=== PATIENT | female | born 1985 | race Caucasian/White ===

== ENCOUNTER 2016-12-29 17:56 | Emergency (ER) | payer OTHER ==
[2016-12-29 17:56] VITALS: BMI 23.3
[2016-12-29 18:04] VITALS: BP 109/75; PULSE 76; TEMP 97.8; O2SAT 100
--- NOTE | 2016-12-29 19:17 | C.PDOC ---
History Of Present Illness 31 yr old female presents to ER with complaints of cough for the past 3 weeks, associated with chest congestion. Patient states she feels pain when she coughs. Patient reports she was seen for chest pain and had a normal EKG and was discharged. Patient states she came in today due to the persistent cough. Patient denies fever, SOB, nausea, vomiting, abdominal pain, diarrhea, headache , weakness or numbness. Time Seen by Provider: 12/29/16 18:10 Chief Complaint (Nursing): Cough, Cold, Congestion History Per: Patient History/Exam Limitations: no limitations Onset/Duration Of Symptoms: Persistent (3 weeks) Current Symptoms Are (Timing): Still Present Sick Contacts (Context): None Recent travel outside of the [place]: No Past Medical History Reviewed: Historical Data, Nursing Documentation, Vital Signs Vital Signs: Last Vital Signs Temp 97.8 F 12/29/16 18:00 Pulse 76 12/29/16 18:00 Resp 20 12/29/16 19:44 BP 109/75 12/29/16 18:00 Pulse Ox 100 12/29/16 21:09 - Medical History PMH: Asthma Surgical History: Tonsillectomy - [facility] Procedures COLONOSCOPY (11/07/14) ESOPHAGOGASTRODUODENOSCOPY [EGD] W/CLOSED BIOPSY (11/21/14) Family History: States: No Known Family Hx - Social History Hx Tobacco Use: No Hx Alcohol Use: Yes Hx Substance Use: No - Immunization History Hx Tetanus Toxoid Vaccination: No Hx Influenza Vaccination: No Hx Pneumococcal Vaccination: No Review Of Systems Except As Marked, All Systems Reviewed And Found Negative. Constitutional: Negative for: Fever Cardiovascular: Positive for: Chest Pain (when coughing ) Respiratory: Positive for: Cough. Negative for: Shortness of Breath Gastrointestinal: Negative for: Nausea, Vomiting, Abdominal Pain, Diarrhea Neurological: Negative for: Weakness, Numbness, Headache Physical Exam - Physical Exam Appears: Non-toxic, No Acute Distress Skin: Warm, Dry, No Rash Head: Atraumatic, Normacephalic Ear(s): Bilateral: Normal Oral Mucosa: Moist Throat: Normal, No Erythema, No Exudate Chest: Symmetrical, No Tenderness Cardiovascular: Rhythm Regular, No Murmur Respiratory: Rhonchi (scattered ), No Wheezing Gastrointestinal/Abdominal: Normal Exam, Soft, No Tenderness, No Guarding, No Rebound Back: Normal Inspection, No CVA Tenderness Extremity: Normal ROM, No Swelling Neurological/Psych: Oriented x3, Normal Speech, Normal Motor ED Course And Treatment O2 Sat by Pulse Oximetry: 100 (on RA) Pulse Ox Interpretation: Normal - Radiology CXR: Interpreted by Me, Viewed By Me CXR Interpretation: Yes: Infiltrates (interstitial infiltrate) Medical Decision Making Medical Decision Making: PLAN: * CXR * Tessalon PO * Zithromax PO * Prednisone PO On re-exam, the patient reports improvement of symptoms. Lungs are CTA, heart is RRR, abdomen is soft, non-tender and tolerating PO well. Follow up with the medical doctor within 1-2 days. Return if worsened. Disposition - Disposition Referrals: Nina Comer MD [Staff Provider] - Disposition: HOME/ ROUTINE Disposition Time: 19:15 Condition: GOOD Additional Instructions: Follow up with the medical doctor within 1-2 days. Return if worsened. Prescriptions: Benzonatate [Tessalon Perles] 200 mg PO TID PRN #21 sgl PRN Reason: Cough Azithromycin [Zithromax] 250 mg PO DAILY #4 tab predniSONE [Prednisone] 20 mg PO BID #10 tab Instructions: Acute Bronchitis (ED) - Clinical Impression Clinical Impression: Bronchitis, Atypical pneumonia - PA / MICE RAISER / Resident Statement MD/DO has reviewed & agrees with the documentation as recorded. - Scribe Statement The provider has reviewed the documentation as recorded by the Scribe Christina River All medical record entries made by the Scribe were at my direction and personally dictated by me. I have reviewed the chart and agree that the record accurately reflects my personal performance of the history, physical exam, medical decision making, and the department course for this patient. I have also personally directed, reviewed, and agree with the discharge instructions and disposition.
[2016-12-29 19:45] VITALS: RESP 20
--- NOTE | 2016-12-30 08:30 | RAD ---
HISTORY: cough x 3 weeks, COMPARISON: Chest x-ray portion of obstruction series performed 12/01/14 TECHNIQUE: Chest PA and lateral FINDINGS: LUNGS: Minimal atelectasis at the left lung base with tenting of the hemidiaphragm. No focal consolidation. Please note that chest x-ray has limited sensitivity for the detection of pulmonary masses. PLEURA: No significant pleural effusion identified. No definite pneumothorax . CARDIOVASCULAR: The cardiomediastinal silhouette appears within normal limits of size. OSSEOUS STRUCTURES: No acute osseous abnormality identified. VISUALIZED UPPER ABDOMEN: Unremarkable. OTHER FINDINGS: None. IMPRESSION: Re-identified minimal atelectasis at the left lung base with tenting of the hemidiaphragm.
== END 2016-12-29 19:44 | disposition home or self-care (01) ==
LOC: C.ER 17:56
DX: J40 Bronchitis, not specified as acute or chronic (principal); J18.9 Pneumonia, unspecified organism

== ENCOUNTER 2016-12-30 23:32 | Emergency (ER) | payer OTHER ==
[2016-12-30 23:32] VITALS: BMI 23.3
[2016-12-31 00:15] VITALS: BP 103/63; PULSE 63; TEMP 98.2; O2SAT 99
--- NOTE | 2016-12-31 00:41 | C.PDOC ---
History Of Present Illness 31 yo female come in to ED for medication evaluation. Pt admits, was seen here yesterday and diagnosed with bronchitis, received Rx: Zithromax, Tessalon and prednisone. Pt admits, "today noted some yellow discoloration of my eyes and not sure this is an allergic reaction to medication that I was given". Otherwise , pt denies fever, chills, rash, headache, dizziness, drooling, dysphagia, dyspnea, wheezing, SOB, abd. pain, V/D or any other active complaints. Ambulate to ED for evaluation, not in any apparent distress. Last dose of medication was Time Seen by Provider: 12/31/16 00:05 Chief Complaint (Nursing): Allergic Reaction History Per: Patient Past Medical History Reviewed: Historical Data, Nursing Documentation, Vital Signs Vital Signs: Last Vital Signs Temp 98.2 F 12/31/16 00:09 Pulse 63 12/31/16 00:09 Resp 16 12/31/16 00:09 BP 103/63 12/31/16 00:09 Pulse Ox 99 12/31/16 00:43 - Medical History PMH: Asthma Denies: Chronic Kidney Disease Surgical History: Tonsillectomy - [facility] Procedures COLONOSCOPY (11/07/14) ESOPHAGOGASTRODUODENOSCOPY [EGD] W/CLOSED BIOPSY (11/21/14) Family History: States: No Known Family Hx - Social History Hx Tobacco Use: No Hx Alcohol Use: Yes Hx Substance Use: No - Immunization History Hx Tetanus Toxoid Vaccination: No Hx Influenza Vaccination: No Hx Pneumococcal Vaccination: No Review Of Systems Except As Marked, All Systems Reviewed And Found Negative. Constitutional: Negative for: Fever, Chills Eyes: Negative for: Pain, Vision Change, Conjunctivae Inflammation, Eyelid Inflammation, Redness ENT: Negative for: Mouth Swelling, Throat Pain, Throat Swelling Cardiovascular: Negative for: Chest Pain, Palpitations, Edema, Light Headedness Respiratory: Negative for: Cough, Shortness of Breath Gastrointestinal: Negative for: Nausea, Vomiting, Abdominal Pain Musculoskeletal: Negative for: Neck Pain, Back Pain Neurological: Negative for: Weakness, Numbness, Altered Mental Status, Headache , Dizziness Physical Exam - Physical Exam Appears: Well, Non-toxic, No Acute Distress Skin: Normal Color, Warm, Dry, No Rash Head: Atraumatic, Normacephalic Eye(s): bilateral: PERRL, EOMI, Other (mild conjunctival injection, watery eyes B/L. No scleral icterus, no periorbital edema or erethrma, no discharge.) Ear(s): Bilateral: Normal Nose: Discharge (B/L nasal congestion.) Oral Mucosa: Moist, No Drooling, No Trismus Tongue: Normal Appearing, No Swelling Lips: Normal Appearing, No Swelling Throat: Normal, No Erythema, No Exudate, No Drooling, Other (Uvula midline, no edema.) Neck: Normal, Normal ROM, Supple Cardiovascular: Rhythm Regular Respiratory: Normal Breath Sounds, No Stridor, No Wheezing Gastrointestinal/Abdominal: Normal Exam, Soft, No Tenderness Back: Normal Inspection, No CVA Tenderness Extremity: Normal ROM, No Pedal Edema, No Deformity Neurological/Psych: Oriented x3, Normal Speech ED Course And Treatment O2 Sat by Pulse Oximetry: 99 Pulse Ox Interpretation: Normal Progress Note: On re-evaluation, pt is afebrile, hemnodynamicaly stable. Non- toxic. PusleOx 99% RA. Eyes: normal exam. No acute findings. ENT: No acute findings. Uvula midline, no edema. NO drooling. Neck: supple. Lungs: CTA B/L, BS equal B/L. ABd: benign. SKin: no rash. Neurologicaly intact. Pt has clinical findings c/w URI sx, no evidencce of allergic reaction. Pt advised. ref. to F/u with PMD In 2-3 days for re-eval. return to ED if any worsening or new changes. Disposition Counseled Patient/Family Regarding: Diagnosis, Need For Followup, Rx Given - Disposition Referrals: [facility] [Outside] Disposition: HOME/ ROUTINE Disposition Time: 00:23 Condition: STABLE Additional Instructions: Continue medication as prescribed Bedrest Encourage fluids Follow up with PMD In 2-3 days for re-evaluation. Return to ED if any worsening or new changes. Instructions: Upper Respiratory Infection (ED) - Clinical Impression Clinical Impression: Upper respiratory infection
[2016-12-31 00:53] VITALS: RESP 20
== END 2016-12-31 00:52 | disposition home or self-care (01) ==
LOC: C.ER 23:32
DX: J06.9 Acute upper respiratory infection, unspecified (principal)

== ENCOUNTER 2017-01-10 18:00 | Emergency (ER) | payer OTHER ==
[2017-01-10 18:00] VITALS: BMI 23.3
[2017-01-10 18:15] VITALS: O2SAT 100
--- NOTE | 2017-01-10 19:45 | C.PDOC ---
History Of Present Illness A 31 year old female presents to the emergency room with complaints of coughing for a few months. Patient reports that she has been seen by her PMD and was told that she has bronchitis. Patient was given Zithromax and feels better. Patient wants to know if her bronchitis has resolved. Patient does not want an X -ray since she had one 2 weeks ago. Patient denies any chest pain, shortness of breath, fever, chills, nausea, vomiting, diarrhea, or any other complaints. Time Seen by Provider: 01/10/17 19:01 Chief Complaint (Nursing): Shortness Of Breath History Per: Patient History/Exam Limitations: no limitations Onset/Duration Of Symptoms: Other (Months) Current Symptoms Are (Timing): Still Present Current Respiratory Medications: Other (Zithromax) Severity: Mild Associated Symptoms: denies: Fever, Chills, Chest Pain Recent travel outside of the [place]: No Past Medical History Reviewed: Historical Data, Nursing Documentation, Vital Signs Vital Signs: Last Vital Signs Temp 98 F 01/10/17 19:43 Pulse 63 01/10/17 19:43 Resp 18 01/10/17 19:43 BP 105/63 01/10/17 19:43 Pulse Ox 100 01/10/17 20:13 - Medical History PMH: Asthma Denies: Chronic Kidney Disease Surgical History: Tonsillectomy - [facility] Procedures COLONOSCOPY (11/07/14) ESOPHAGOGASTRODUODENOSCOPY [EGD] W/CLOSED BIOPSY (11/21/14) Family History: States: Unknown Family Hx - Social History Hx Tobacco Use: No Hx Alcohol Use: Yes Hx Substance Use: No - Immunization History Hx Tetanus Toxoid Vaccination: No Hx Influenza Vaccination: No Hx Pneumococcal Vaccination: No Review Of Systems Except As Marked, All Systems Reviewed And Found Negative. Constitutional: Negative for: Fever, Chills Cardiovascular: Negative for: Chest Pain Respiratory: Positive for: Cough. Negative for: Shortness of Breath Gastrointestinal: Negative for: Nausea, Vomiting, Diarrhea Physical Exam - Physical Exam Appears: Well, Non-toxic, No Acute Distress Skin: Normal Color, Warm, Dry Head: Atraumatic, Normacephalic Eye(s): bilateral: Normal Inspection Ear(s): Bilateral: Normal Nose: Normal, No Discharge Oral Mucosa: Moist Throat: Normal, No Erythema, No Exudate Neck: Normal ROM, Supple Cardiovascular: Rhythm Regular Respiratory: Normal Breath Sounds, No Rales, No Rhonchi, No Wheezing Gastrointestinal/Abdominal: Soft, No Tenderness, No Guarding, No Rebound Extremity: Normal ROM, No Tenderness Neurological/Psych: Oriented x3, Normal Speech ED Course And Treatment O2 Sat by Pulse Oximetry: 100 Progress Note: Informed patient that if she is feeling much better after taking Zithromax, that Bronchitis has more than likely resolved. Patient is afebrile and denies any coughing, shortness of breath, or chest pain. Instructed patient to continue taking medication and to follow up with PMD within 1-2 days. Disposition - Disposition Disposition: HOME/ ROUTINE Disposition Time: 19:43 Condition: STABLE Additional Instructions: Follow up with your PMD within 1-2 days. Return to Ed if feel worse. Instructions: Acute Cough (ED) - Clinical Impression Clinical Impression: Cough - Scribe Statement The provider has reviewed the documentation as recorded by the Katie James Provider Scribe Attestation: All medical record entries made by the Katie were at my direction and personally dictated by me. I have reviewed the chart and agree that the record accurately reflects my personal performance of the history, physical exam, medical decision making, and the department course for this patient. I have also personally directed, reviewed, and agree with the discharge instructions and disposition.
[2017-01-10 19:46] VITALS: BP 105/63; PULSE 63; RESP 18; TEMP 98
== END 2017-01-10 19:47 | disposition home or self-care (01) ==
LOC: C.ER 18:00
DX: R05 Cough (principal)

== ENCOUNTER 2017-04-26 18:16 | Emergency (ER) | payer OTHER ==
[2017-04-26 18:16] VITALS: BMI 23.3
[2017-04-26 18:27] VITALS: BP 113/71; PULSE 72; RESP 20; TEMP 98.9; O2SAT 100
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
--- NOTE | 2017-04-27 09:00 | RAD ---
PROCEDURE: Left Index finger radiographs. HISTORY: injury COMPARISON: None. TECHNIQUE: AP radiograph of the left hand, as well as spot oblique and lateral images of index finger were obtained. FINDINGS: LEFT INDEX FINGER: Normal left index finger, without fracture or focal lesion. Remainder of the left hand (as seen on the AP view) grossly intact. JOINTS: Normal. SOFT TISSUES: Normal. OTHER FINDINGS: None. IMPRESSION: Normal left index finger radiographs.
== END 2017-04-26 19:58 | disposition home or self-care (01) ==
LOC: C.ER 18:16
DX: S63.611A Unspecified sprain of left index finger, initial encounter (principal); Y08.89XA Assault by other specified means, initial encounter

== ENCOUNTER 2017-05-04 18:33 | Emergency (ER) | payer OTHER ==
[2017-05-04 18:33] VITALS: BMI 23.3
[2017-05-04 18:56] VITALS: BP 118/80; PULSE 63; RESP 20; TEMP 98.5; O2SAT 99
--- NOTE | 2017-05-04 19:26 | C.PDOC ---
History Of Present Illness 32 y/o female presents to ED with complaints of pain to the 2nd left finger for 1+ week. Patient states she was seen at last week in [facility], had XR done and was diagnosed as a sprain. Pain persists and notes finger moves "sideways". Patient states pain has not improved and notes finger looks pale. Patient denies numbness, tingling or any other complaints at this time. (-) new trauma Time Seen by Provider: 05/04/17 19:01 Chief Complaint (Nursing): Finger,Hand,&Wrist History Per: Patient History/Exam Limitations: no limitations Onset/Duration Of Symptoms: Days Current Symptoms Are (Timing): Still Present Quality: "Pain" Past Medical History Reviewed: Historical Data, Nursing Documentation, Vital Signs Vital Signs: Last Vital Signs Temp 98.5 F 05/04/17 18:52 Pulse 63 05/04/17 18:52 Resp 20 05/04/17 18:52 BP 118/80 05/04/17 18:52 Pulse Ox 99 05/04/17 19:43 - Medical History PMH: Asthma Surgical History: Tonsillectomy - [facility] Procedures COLONOSCOPY (11/07/14) ESOPHAGOGASTRODUODENOSCOPY [EGD] W/CLOSED BIOPSY (11/21/14) Family History: States: Unknown Family Hx - Social History Hx Tobacco Use: No Hx Alcohol Use: Yes Hx Substance Use: No - Immunization History Hx Tetanus Toxoid Vaccination: No Hx Influenza Vaccination: No Hx Pneumococcal Vaccination: No Review Of Systems Except As Marked, All Systems Reviewed And Found Negative. Constitutional: Negative for: Fever, Chills Gastrointestinal: Negative for: Nausea, Vomiting, Diarrhea Musculoskeletal: Positive for: Hand Pain Skin: Negative for: Rash Neurological: Negative for: Weakness, Numbness Physical Exam - Physical Exam Appears: Non-toxic, No Acute Distress Skin: Normal Color, Warm Head: Atraumatic, Normacephalic Eye(s): bilateral: Normal Inspection, EOMI Nose: Normal Oral Mucosa: Moist Chest: Symmetrical Respiratory: No Accessory Muscle Use Extremity: Normal ROM, Tenderness (To the left 2nd dip), Capillary Refill (<2 seconds), No Deformity Extremity: Bilateral: Normal Color And Temperature (no change in temp to affected finger) Pulses: Left Radial: Normal, Right Radial: Normal Neurological/Psych: Oriented x3, Normal Speech, Normal Motor, Normal Sensation ED Course And Treatment O2 Sat by Pulse Oximetry: 99 (RA) Progress Note: Finger FROM, cap refill < 2 sec, strong radial pulse, no change in strength. Pt notes she has a specialist appt on 05/16. Patient will be discharged home and advised to follow up with Hand Specialist in 1-2 days. Case discsused with Dr Sprague , agreed upon plan and discharge. Reevaluation Time: 07:15 Reassessment Condition: Improved Medical Decision Making Medical Decision Making: Plan: XRAY Disposition - Disposition Disposition: HOME/ ROUTINE Disposition Time: 19:25 Condition: STABLE Additional Instructions: Rest, ice and elevate the area. Follow up with hand specialist in 1-2 days. Return to ER if symptoms persist or worsen. Instructions: Finger Sprain (ED) - Clinical Impression Clinical Impression: Finger sprain - Scribe Statement The provider has reviewed the documentation as recorded by the Jaymieibbrett Sanchez All medical record entries made by the Jaymieibbrett were at my direction and personally dictated by me. I have reviewed the chart and agree that the record accurately reflects my personal performance of the history, physical exam, medical decision making, and the department course for this patient. I have also personally directed, reviewed, and agree with the discharge instructions and disposition.
== END 2017-05-04 20:15 | disposition home or self-care (01) ==
LOC: C.ER 18:33
DX: S63.611D Unspecified sprain of left index finger, subsequent encounter (principal); X58.XXXD Exposure to other specified factors, subsequent encounter

== ENCOUNTER 2017-05-16 12:07 | Emergency (ER) | payer OTHER ==
[2017-05-16 12:07] VITALS: BMI 23.3
[2017-05-16 12:13] VITALS: BP 111/67; PULSE 66; RESP 18; TEMP 97.8; O2SAT 98
--- NOTE | 2017-05-16 13:01 | C.PDOC ---
History Of Present Illness Pt states that she used a "facial scrub" last night with mild skin irritation. She used it again this morning and irritation got worse. Time Seen by Provider: 05/16/17 12:39 Chief Complaint (Nursing): Allergic Reaction History Per: Patient Onset/Duration Of Symptoms: Hrs (since last night) Current Symptoms Are (Timing): Still Present Possible Cause: Other ("Facial scrub") Associated Symptoms: Skin Rash, Itching Home/EMS Treatment: None Severity: Moderate Additional History Per: Prior Records Past Medical History Reviewed: Historical Data, Nursing Documentation, Vital Signs Vital Signs: Last Vital Signs Temp 97.8 F 05/16/17 12:12 Pulse 66 05/16/17 12:12 Resp 18 05/16/17 12:12 BP 111/67 05/16/17 12:12 Pulse Ox 98 05/16/17 12:12 - Medical History PMH: Asthma Surgical History: Tonsillectomy - [facility] Procedures COLONOSCOPY (11/07/14) ESOPHAGOGASTRODUODENOSCOPY [EGD] W/CLOSED BIOPSY (11/21/14) Family History: States: Unknown Family Hx - Social History Hx Tobacco Use: No Hx Alcohol Use: Yes Hx Substance Use: No - Immunization History Hx Tetanus Toxoid Vaccination: No Hx Influenza Vaccination: No Hx Pneumococcal Vaccination: No Review Of Systems Except As Marked, All Systems Reviewed And Found Negative. Constitutional: Negative for: Fever, Weakness ENT: Negative for: Mouth Pain, Mouth Swelling, Throat Pain, Throat Swelling Cardiovascular: Negative for: Chest Pain Respiratory: Negative for: Shortness of Breath Gastrointestinal: Negative for: Vomiting, Abdominal Pain Skin: Positive for: Rash (on face) Neurological: Negative for: Weakness, Numbness, Seizures, Altered Mental Status Physical Exam - Physical Exam Appears: Non-toxic, No Acute Distress Skin: Warm, Dry, Rash (Facial skin irritation) Head: Atraumatic, Normacephalic Eye(s): bilateral: Normal Inspection, PERRL, EOMI Oral Mucosa: Moist Lips: Normal Appearing Throat: Normal Neck: Normal ROM, Supple Cardiovascular: Rhythm Regular Respiratory: Normal Breath Sounds, No Accessory Muscle Use Gastrointestinal/Abdominal: Soft, No Tenderness Extremity: Normal ROM Neurological/Psych: Oriented x3, Normal Speech, Normal Motor, Normal Sensation ED Course And Treatment O2 Sat by Pulse Oximetry: 98 Pulse Ox Interpretation: Normal Disposition Counseled Patient/Family Regarding: Diagnosis, Need For Followup - Disposition Disposition: HOME/ ROUTINE Disposition Time: 13:03 Condition: STABLE Additional Instructions: Follow up with your doctor. Return to the ER if you develop throat swelling, shortness of breath, worsening of symptoms or if you have any other concerns. Prescriptions: DiphenhydrAMINE [Benadryl] 25 mg PO Q4 PRN #30 cap PRN Reason: Allergy Symptoms Instructions: General Allergic Reaction (ED) Forms: [facility] (Lao) - Clinical Impression Clinical Impression: Facial rash, Adverse reaction to drug that acts primarily on skin
== END 2017-05-16 13:11 | disposition home or self-care (01) ==
LOC: C.ER 12:07
DX: L25.1 Unspecified contact dermatitis due to drugs in contact with skin (principal); T50.995A Adverse effect of other drugs, medicaments and biological substances, initial encounter; Y92.89 Other specified places as the place of occurrence of the external cause

== ENCOUNTER 2017-11-24 17:56 | Emergency (ER) | payer BC, OTHER ==
[2017-11-24 18:25] VITALS: BMI 22.6
[2017-11-24 18:35] VITALS: BP 110/77; PULSE 75; RESP 18; TEMP 97.9; O2SAT 99
--- NOTE | 2017-11-24 19:41 | C.PDOC ---
History Of Present Illness Patient is a 32 y/o female who presents to the ED with a complaint of needing to take deep breaths over the last 2 weeks. Patient has a questionable Hx of reactive airway disease and has multiple ER presentations with extensive workups without significant findings. 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 Patient requests to refill MDI. No other physical complaints at this time. Time Seen by Provider: 11/24/17 19:32 Chief Complaint (Nursing): Shortness Of Breath History Per: Patient History/Exam Limitations: no limitations Onset/Duration Of Symptoms: Days (last 2 weeks) Current Symptoms Are (Timing): Still Present Severity: Moderate Pain Scale Rating Of: 4 Recent travel outside of the [place]: No Past Medical History Reviewed: Historical Data, Nursing Documentation, Vital Signs Vital Signs: Last Vital Signs Temp 97.9 F 11/24/17 18:26 Pulse 75 11/24/17 18:26 Resp 18 11/24/17 18:26 BP 110/77 11/24/17 18:26 Pulse Ox 99 11/24/17 19:41 - Medical History PMH: Asthma Denies: Chronic Kidney Disease Other PMH: questionable Hx of reactive airway disease Surgical History: Tonsillectomy - [facility] Procedures COLONOSCOPY (11/07/14) ESOPHAGOGASTRODUODENOSCOPY [EGD] W/CLOSED BIOPSY (11/21/14) Family History: States: Unknown Family Hx - Social History Hx Tobacco Use: No Hx Alcohol Use: No Hx Substance Use: No - Immunization History Hx Tetanus Toxoid Vaccination: Yes Hx Influenza Vaccination: Yes Hx Pneumococcal Vaccination: Yes Review Of Systems Respiratory: Positive for: Other (needing to take deep breaths) Physical Exam - Physical Exam Appears: Well, Non-toxic, No Acute Distress, Other (smiling, anxious) Skin: Normal Color, Warm, Dry Head: Atraumatic, Normacephalic Oral Mucosa: Moist Chest: Symmetrical Cardiovascular: Rhythm Regular, No Murmur Respiratory: Normal Breath Sounds, No Decreased Breath Sounds, No Accessory Muscle Use, No Rales, No Rhonchi, No Wheezing Neurological/Psych: Oriented x3, Normal Speech, Normal Cognition ED Course And Treatment O2 Sat by Pulse Oximetry: 99 Medical Decision Making Medical Decision Making: vague symptoms for last 2 weeks, recovering from viral syndrome, anxious, many prior ED evals without significant findings. wants Albuterol inhaler refill no w/u indicated at this time. Disposition Doctor Will See Patient In The: Office Counseled Patient/Family Regarding: Studies Performed, Diagnosis - Disposition Referrals: [place] [facility] [place] [Outside] [facility] [Outside] [facility] [Outside] Violet Barry MD [Staff Provider] - Disposition: HOME/ ROUTINE Disposition Time: 19:40 Condition: GOOD Additional Instructions: albuterol puffer as needed Follow-up with Dr. Barry for your new PMD as needed Follow-up with outpatient Psych and rn social services to consider evaluation of anxiety- medications and counseling available. Prescriptions: Albuterol HFA [Ventolin HFA 90 mcg/actuation (8 g)] 2 puff IH Q4H PRN #1 unit PRN Reason: asthma Instructions: Viral Syndrome (ED), Anxiety (ED) Forms: [employer] (Hebrew) - Clinical Impression Clinical Impression: Anxiety, Shortness of breath - Scribe Statement The provider has reviewed the documentation as recorded by the Scribe Tisha Amador All medical record entries made by the Scribe were at my direction and personally dictated by me. I have reviewed the chart and agree that the record accurately reflects my personal performance of the history, physical exam, medical decision making, and the department course for this patient. I have also personally directed, reviewed, and agree with the discharge instructions and disposition.
== END 2017-11-24 19:55 | disposition home or self-care (01) ==
LOC: C.ER 17:56
DX: F41.9 Anxiety disorder, unspecified (principal); R06.02 Shortness of breath

== ENCOUNTER 2018-04-07 22:35 | Emergency (ER) | payer BC ==
[2018-04-07 22:35] VITALS: BMI 22.6
[2018-04-07 22:48] VITALS: O2SAT 100
[2018-04-07 23:49] LABS: HCG,QUALITATIVE URINE NEGATIVE (NEGATIVE); SQUAMOUS EPITHIAL < 1 /hpf (0-5); URINE BILIRUBIN NEGATIVE (NEGATIVE); URINE BLOOD NEGATIVE (NEGATIVE); URINE CLARITY Clear (Clear); URINE COLOR Yellow (YELLOW); URINE GLUCOSE (UA) NORMAL (Normal); URINE LEUKOCYTE ESTERASE NEG Leu/uL (Negative); URINE PROTEIN NEGATIVE (NEGATIVE); URINE UROBILINOGEN NORMAL mg/dL (0.2-1.0)
[2018-04-07] MEDS ORDERED: Sodium Chloride 0.9% 1,000 ML IV STA (23:51)
--- NOTE | 2018-04-07 23:55 | C.PDOC ---
History Of Present Illness 33 y/o F c PMHx anxiety, IBS p/w lightheadedness, nausea, loose stools with mucus, "never feeling hungry," generally feeling unwell. Patient states symptoms began while she was in [place] and just worsened upon her arrival home. She saw her PMD for the lightheadedness which she does not describe as a spinning sensation and was prescribed Scopolamine patches which she has not taken. She then developed her abdominal discomfort and came to the ED for further evaluation. Denies fever, stiff neck, vomiting, dysuria, rash. Time Seen by Provider: 04/07/18 23:18 Chief Complaint (Nursing): Dizziness/Lightheaded Past Medical History Vital Signs: Last Vital Signs Temp 98.2 F 04/07/18 22:41 Pulse 75 04/07/18 22:41 Resp 16 04/07/18 22:41 BP 115/78 04/07/18 22:41 Pulse Ox 100 04/07/18 23:56 - Medical History PMH: Asthma Denies: Chronic Kidney Disease Surgical History: Tonsillectomy - [facility] Procedures COLONOSCOPY (11/07/14) ESOPHAGOGASTRODUODENOSCOPY [EGD] W/CLOSED BIOPSY (11/21/14) Family History: States: Unknown Family Hx - Social History Hx Tobacco Use: No Hx Alcohol Use: No Hx Substance Use: No - Immunization History Hx Tetanus Toxoid Vaccination: Yes Hx Influenza Vaccination: Yes Hx Pneumococcal Vaccination: Yes Review Of Systems Except As Marked, All Systems Reviewed And Found Negative. Constitutional: Negative for: Fever Cardiovascular: Negative for: Chest Pain Physical Exam - Physical Exam Additional Physical Exam Comments: Constitutional: No acute distress. Head: Normocephalic. Atraumatic. Eyes: PERRL. ENT: Moist mucous membranes. Neck: Supple. No rigidity. Cardiovascular: Regular rate. Radial pulse 2+ bilaterally. Chest: No tenderness. Respiratory: Clear to auscultation bilaterally. GI: Soft. Nontender. Nondistended. No rebound or guarding. Back: No CVA tenderness. Musculoskeletal: No tenderness or swelling of extremities. Skin: No rash. Neurologic: Alert, no focal deficit. ED Course And Treatment - Laboratory Results Result Diagrams: 04/08/18 00:33 04/08/18 00:33 O2 Sat by Pulse Oximetry: 100 Medical Decision Making Medical Decision Making: Patient with diarrhea with mucus after trip to [place], will treat as Traveler's diarrhea. Otherwise, no abdominal rigidity, labs unremarkable, vital signs normal. Will discharge, f/u PMD, return to ED for worsening pain, inability to take PO, stiff neck, lethargy, or any other problem. Disposition - Disposition Disposition: HOME/ ROUTINE Disposition Time: 00:59 Condition: STABLE Prescriptions: Ciprofloxacin [Cipro] 500 mg PO BID #14 tab Instructions: Traveler's Diarrhea Forms: [facility] (Hungarian), Work Excuse - Clinical Impression Clinical Impression: Lightheadedness, Mucus in stool
[2018-04-07] MEDS ORDERED: Alum-Mag Hydrox-Simethicone Susp (30 mL) PO STA (23:56)
[2018-04-07] MEDS ORDERED: Sodium Chloride 0.9% 1,000 ML ONE (23:57)
[2018-04-08] MEDS ORDERED: Alum-Mag Hydrox-Simethicone Susp (30 mL) ONE (00:19)
[2018-04-08 00:42] LABS: BASO % 0.4 % (0.0-2.0); EOS # 0.2 K/uL (0.0-0.7); EOS % 2.1 % (0.0-4.0); HEMOGLOBIN 13.4 g/dL (11.0-16.0); LYMPH # 2.6 K/uL (1.0-4.3); LYMPH % 35.9 % (20.0-40.0); MEAN CELL VOLUME 84.4 fL (81.0-99.0); MEAN CORPUSCULAR HEMOGLOBIN 28.6 pg (27.0-31.0); MEAN CORPUSCULAR HGB CONC 33.9 g/dL (33.0-37.0); MEAN PLATELET VOLUME 8.9 fL (7.2-11.7); MONO # 0.7 K/uL (0.0-0.8); MONO % 9.6 % (0.0-10.0); NEUT # 3.8 K/uL (1.8-7.0); RBC 4.67 Mil/uL (3.80-5.20); RED CELL DISTRIBUTION WIDTH 14.1 % (11.5-14.5); WHITE BLOOD COUNT 7.3 K/uL (4.8-10.8)
[2018-04-08 00:54] LABS: CALCIUM 8.7 mg/dl (8.6-10.4); GFR AFRICAN-AMERICAN > 60; GFR NON-AFRICAN AMERICAN > 60; LIPASE 85 U/L (23-300)
[2018-04-08 00:59] LABS: ALB/GLOB RATIO 1.6 (1.0-2.1); ALBUMIN 4.9 g/dL (3.5-5.0); ALT/SGPT 37 U/L (9-52); AST/SGOT 49 U/L (14-36); BLOOD UREA NITROGEN 17 mg/dL (7-17)
[2018-04-08 01:28] VITALS: BP 109/68; PULSE 58; RESP 20; TEMP 98.6
== END 2018-04-08 01:28 | disposition home or self-care (01) ==
LOC: C.ER 22:35
DX: R42 Dizziness and giddiness (principal); R19.5 Other fecal abnormalities
CPT/HCPCS: 80053; 81001; 83690; 84703; 85025; 87086; 96361; 96374; 96375; 99285; J2405; J7030

== ENCOUNTER 2018-11-23 11:33 | Emergency (ER) | payer BC ==
[2018-11-23 11:45] VITALS: BMI 24.7
[2018-11-23 11:49] VITALS: RESP 18; O2SAT 100
[2018-11-23 12:36] LABS: SQUAMOUS EPITHIAL < 1 /hpf (0-5); URINE BILIRUBIN NEGATIVE (NEGATIVE); URINE BLOOD NEGATIVE (NEGATIVE); URINE CLARITY Clear (Clear); URINE COLOR Straw (YELLOW); URINE GLUCOSE (UA) NORMAL (Normal); URINE LEUKOCYTE ESTERASE NEG Leu/uL (Negative); URINE PROTEIN NEGATIVE (NEGATIVE); URINE UROBILINOGEN NORMAL mg/dL (0.2-1.0)
--- NOTE | 2018-11-23 12:56 | C.PDOC ---
History Of Present Illness 33 y/o female presents to the ED complaining of lower abdominal pain with sudden onset 1 hour prior to arrival, while patient was at work. She describes pain as sharp and worse with movement. Patient denies any hx of similar symptoms in the past. Denies any fever, vomiting, diarrhea, GI bleeding, dizziness, or urinary complaints. She has a previous surgical hx of abdominoplasty 8 years ago and C- section 12 years ago. Patient denies . Time Seen by Provider: 11/23/18 11:56 Chief Complaint (Nursing): Abdominal Pain History Per: Patient History/Exam Limitations: no limitations Onset/Duration Of Symptoms: Hrs (x 1) Current Symptoms Are (Timing): Still Present Severity: Moderate Location Of Pain/Discomfort: Suprapubic Quality Of Discomfort: "Pain" Past Medical History Reviewed: Historical Data, Nursing Documentation, Vital Signs Vital Signs: Last Vital Signs Temp 98.2 F 11/23/18 11:45 Pulse 78 11/23/18 11:45 Resp 18 11/23/18 11:45 BP 112/72 11/23/18 11:45 Pulse Ox 100 11/23/18 11:45 - Medical History PMH: Asthma (denies) Denies: Chronic Kidney Disease Surgical History: Tonsillectomy - [facility] Procedures COLONOSCOPY (11/07/14) ESOPHAGOGASTRODUODENOSCOPY [EGD] W/CLOSED BIOPSY (11/21/14) Family History: States: Unknown Family Hx - Social History Hx Tobacco Use: No Hx Alcohol Use: No Hx Substance Use: No - Immunization History Hx Tetanus Toxoid Vaccination: Yes Hx Influenza Vaccination: Yes Hx Pneumococcal Vaccination: Yes Review Of Systems Except As Marked, All Systems Reviewed And Found Negative. Constitutional: Negative for: Fever, Chills Respiratory: Negative for: Shortness of Breath Gastrointestinal: Positive for: Abdominal Pain. Negative for: Vomiting, Diarrhea, Constipation Genitourinary: Negative for: Dysuria, Frequency, Incontinence Skin: Negative for: Rash Neurological: Negative for: Weakness, Dizziness Physical Exam - Physical Exam Appears: Non-toxic, No Acute Distress Skin: Warm, Dry, No Rash Head: Atraumatic, Normacephalic Eye(s): bilateral: Normal Inspection, PERRL, EOMI Ear(s): Bilateral: Normal Oral Mucosa: Moist Throat: No Erythema, No Exudate Neck: Normal ROM, Supple Chest: Symmetrical, No Tenderness Cardiovascular: Rhythm Regular, No Friction Rub, No Murmur Respiratory: Normal Breath Sounds, No Accessory Muscle Use, Other (Speaking in full sentences) Gastrointestinal/Abdominal: Bowel Sounds (active), Soft, Tenderness (lower abdominal tenderness R > L), No Guarding, No Rebound Back: Normal Inspection, No CVA Tenderness, No Vertebral Tenderness Pelvic: Normal External Exam, No Vaginal Bleeding, Vaginal Discharge (White- yellow yuliya discharge), No Cervical Motion Tenderness, No Adnexal Tenderness, Other (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 ) Extremity: Normal ROM, No Swelling Extremity: Bilateral: Atraumatic, Normal Color And Temperature, Normal ROM Neurological/Psych: Oriented x3, Normal Speech Gait: Steady ED Course And Treatment - Laboratory Results Result Diagrams: 11/23/18 13:14 11/23/18 13:14 Lab Results: Urine Color Straw (YELLOW) 11/23/18 12:20 Urine Clarity Clear (Clear) 11/23/18 12:20 Urine pH 7.0 (5.0-8.0) 11/23/18 12:20 Ur Specific [place] 1.005 (1.003-1.030) 11/23/18 12:20 Urine Protein Negative mg/dL (NEGATIVE) 11/23/18 12:20 Urine Glucose (UA) Normal mg/dL (Normal) 11/23/18 12:20 Urine Ketones Negative mg/dL (NEGATIVE) 11/23/18 12:20 Urine Blood Negative (NEGATIVE) 11/23/18 12:20 Urine Nitrate Negative (NEGATIVE) 11/23/18 12:20 Urine Bilirubin Negative (NEGATIVE) 11/23/18 12:20 Urine Urobilinogen Normal mg/dL (0.2-1.0) 11/23/18 12:20 Ur Leukocyte Esterase Neg [place]/uL (Negative) 11/23/18 12:20 Urine RBC (Auto) < 1 /hpf (0-3) 11/23/18 12:20 Ur Squamous Epith Cells < 1 /hpf (0-5) 11/23/18 12:20 Urine HCG, Qual Negative (NEGATIVE) 11/23/18 12:20 Urine HCG, Qual Negative (NEGATIVE) 11/23/18 12:20 O2 Sat by Pulse Oximetry: 100 (RA) Pulse Ox Interpretation: Normal - CT Scan/US Pelvic US Other Rad Studies (CT/US): Read By Radiologist, Radiology Report Reviewed CT/US Interpretation: Accession No. : [id number]. Patient Name / ID : HERBERT ALBERTO / [id number]. Exam Date : 11/23/2018 14:41:47 ( Approved ). Study Comment : Sex / Age : F / 33Y. Creator : Shannen Reveles MD. Dictator : Shannen Reveles MD. Train Engineer : Streetcar Starter : Shannen Reveles MD. Approver2 : Report Date : 11/23/2018 15:39:53. My Comment : . Date of service: 11/23/2018. HISTORY: Pelvic pain, r/o ovarian cyst. COMPARISON: None available. TECHNIQUE: Transabdominal and transvaginal pelvic ultrasound was. FINDINGS: UTERUS: Measures 9.7 x 4.7 x 5.6 cm. Anteverted, normal in size and appearance. There is a 1.6 x 1.5 x 1.8 cm anterior wall intramural fibroid. ENDOMETRIUM: Measures 8.0 mm in diameter. Normal in appearance. CERVIX: No cervical abnormality identified. RIGHT OVARY: Measures 2.9 x 2.5 x 2.6 cm. No solid mass. Normal flow. LEFT OVARY: Measures 3.0 x 2.1 x 2.6 cm. No solid mass. Normal flow. FREE FLUID: There is small amount of free fluid in the cul de sac, likely physiologic. OTHER FINDINGS: None. IMPRESSION: 1.6 x 1.5 x 1.8 cm anterior wall intramural fibroid. No evidence for ovarian cyst. Abdomen/Pelvis CT Other Rad Studies (CT/US): Read By Radiologist, Radiology Report Reviewed CT/US Interpretation: Accession No. : [id number]. Patient Name / ID : HERBERT ALBERTO / [id number]. Exam Date : 11/23/2018 16:35:16 ( Approved ). Study Comment : Sex / Age : F / 33Y. Creator : Claudia Patel. Dictator : Ansley Ivory MD. Train Engineer : Streetcar Starter : Ansley Ivory MD. Approver2 : Report Date : 11/23/2018 16:47:02. My Comment : . Date of service: 11/23/2018. PROCEDURE: CT Abdomen and Pelvis with contrast. HISTORY: Sandy-umbilcal pain, lower abd pain, r/o appendicitis. COMPARISON: None available. TECHNIQUE: Contrast dose: 100 mL Visipaque 320 IV. Radiation dose: Total exam DLP = 510.02 mGy-cm. This CT exam was performed using one or more of the following dose reduction techniques: Automated exposure control, adjustment of the mA and/or kV according to patient size, and/or use of iterative reconstruction technique. FINDINGS: LOWER THORAX: No visible consolidation, pleural effusion, or pneumothorax. Partially imaged right breast prosthesis. Left breast prosthesis is not identified. Correlate clinically. LIVER: Unremarkable. GALLBLADDER AND BILE DUCTS: Unremarkable. PANCREAS: Unremarkable. SPLEEN: Unremarkable. ADRENALS: Unremarkable. KIDNEYS AND URETERS: Malrotated right kidney. The kidneys enhance symmetrically. No hydronephrosis or obstructing calculus identified. VASCULATURE: No aortic aneurysm. No atherosclerotic calcification or mural plaque present. BOWEL: Stomach is nondistended. Lack of oral contrast limits evaluation for bowel pathology. Bowel loops appear within normal limits of caliber without evidence of obstruction. APPENDIX: The appendix is not identified. PERITONEUM: No significant free fluid. No definite free air. LYMPH NODES: No bulky adenopathy identified. BLADDER: Unremarkable. REPRODUCTIVE: The uterus is present. BONES: No acute osseous abnormality is detected. OTHER FINDINGS: None. IMPRESSION: The appendix is not identified. No secondary signs of acu te appendicitis appreciated. Lack of oral contrast limits evaluation. If high clinical index of suspicion, suggest repeat study following administration oral contrast. Medical Decision Making Medical Decision Making: Initial Plan: - CMP - Lipase - CBC - UA - Urine culture - Pelvic/Transvaginal US - 4 mg IV Zofran - 30 mg IV Toradol - IV fluids infusing - Reassess after meds Labs reviewed, blood work shows elevated WBC at 16.4k UA is negative. Preg negative. Still pending US. 15:30 Ultrasound findings reviewed. Patient continues to complain of pe riumbilical/lower abd pain. Will obtain CT Abdomen/Pelvis with IV contrast to rule out appendicitis. 16:47 CT is negative, patient made aware. On re-exam, the patient reports improvement of symptoms. Lungs are CTA, heart is RRR, abdomen is soft, non-tender and the patient is tolerating Po well. Follow up with the medical doctor/clinic within 1-2 days. Return if worsened. Plan is to discharge patient home with rx for naproxen, as needed for pain. Will treat BV with 2% Clinda cream. Disposition Counseled Patient/Family Regarding: Studies Performed, Diagnosis, Need For Followup, Rx Given - Disposition Referrals: [facility] [Outside] [facility] [facility] [Outside] Disposition: HOME/ ROUTINE Disposition Time: 17:32 Condition: GOOD Additional Instructions: Follow up with the OBGYN within 2-3 days. 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 - Scribe Statement The provider has reviewed the documentation as recorded by the Katie Ramirez All medical record entries made by the Katie were at my direction and personally dictated by me. I have reviewed the chart and agree that the record accurately reflects my personal performance of the history, physical exam, medical decision making, and the department course for this patient. I have also personally directed, reviewed, and agree with the discharge instructions and disposition.
[2018-11-23] MEDS ORDERED: Sodium Chloride 0.9% 500 ML IV ONE (12:57)
[2018-11-23] MEDS ORDERED: Sodium Chloride 0.9% 1,000 ML ONE (13:07)
[2018-11-23 13:26] LABS: BASO # 0.1 K/uL (0.0-0.2); BASO % 0.4 % (0.0-2.0); EOS # 0.1 K/uL (0.0-0.7); EOS % 0.5 % (0.0-4.0); HEMOGLOBIN 13.8 g/dL (11.0-16.0); LYMPH # 1.5 K/uL (1.0-4.3); LYMPH % 8.9 % (20.0-40.0); MEAN CORPUSCULAR HEMOGLOBIN 29.1 pg (27.0-31.0); MEAN CORPUSCULAR HGB CONC 32.7 g/dL (33.0-37.0); MEAN PLATELET VOLUME 8.8 fL (7.2-11.7); MONO # 0.7 K/uL (0.0-0.8); MONO % 4.5 % (0.0-10.0); NEUT % 85.7 % (50.0-75.0); PLATELET COUNT 267 K/uL (130-400); RBC 4.75 Mil/uL (3.80-5.20); RED CELL DISTRIBUTION WIDTH 13.8 % (11.5-14.5)
[2018-11-23 13:29] LABS: MEAN CELL VOLUME 88.8 fL (81.0-99.0); WHITE BLOOD COUNT 16.4 K/uL (4.8-10.8)
[2018-11-23 13:38] LABS: ALB/GLOB RATIO 1.6 (1.0-2.1); ALBUMIN 4.8 g/dL (3.5-5.0); ALT/SGPT 20 U/L (9-52); AST/SGOT 19 U/L (14-36); BLOOD UREA NITROGEN 13 mg/dL (7-17); CALCIUM 9.3 mg/dl (8.6-10.4); GFR NON-AFRICAN AMERICAN > 60; LIPASE 59 U/L (23-300)
[2018-11-23 13:53] LABS: BANDS 2 % (0-2); LYMPHOCYTE 10 % (20-40); MONOCYTE 2 % (0-10); PLATELET ESTIMATE NORMAL (NORMAL); TOTAL CELLS COUNTED 100
[2018-11-23 13:54] LABS: NEUTROPHIL 86 % (50-75)
--- NOTE | 2018-11-23 15:43 | US ---
Date of service: 11/23/2018 HISTORY: Pelvic pain, r/o ovarian cyst COMPARISON: None available. TECHNIQUE: Transabdominal and transvaginal pelvic ultrasound was. FINDINGS: UTERUS: Measures 9.7 x 4.7 x 5.6 cm. Anteverted, normal in size and appearance. There is a 1.6 x 1.5 x 1.8 cm anterior wall intramural fibroid. ENDOMETRIUM: Measures 8.0 mm in diameter. Normal in appearance. CERVIX: No cervical abnormality identified. RIGHT OVARY: Measures 2.9 x 2.5 x 2.6 cm. No solid mass. Normal flow. LEFT OVARY: Measures 3.0 x 2.1 x 2.6 cm. No solid mass. Normal flow. FREE FLUID: There is small amount of free fluid in the cul de sac, likely physiologic. OTHER FINDINGS: None. IMPRESSION: 1.6 x 1.5 x 1.8 cm anterior wall intramural fibroid. No evidence for ovarian cyst.
[2018-11-23] MEDS ORDERED: Iohexol 350mg/ml 100 ML ONE (16:14)
--- NOTE | 2018-11-23 17:07 | CT ---
Date of service: 11/23/2018 PROCEDURE: CT Abdomen and Pelvis with contrast HISTORY: Sandy-umbilcal pain, lower abd pain, r/o appendicitis COMPARISON: None available. TECHNIQUE: Contrast dose: 100 mL Visipaque 320 IV Radiation dose: Total exam DLP = 510.02 mGy-cm. This CT exam was performed using one or more of the following dose reduction techniques: Automated exposure control, adjustment of the mA and/or kV according to patient size, and/or use of iterative reconstruction technique. FINDINGS: LOWER THORAX: No visible consolidation, pleural effusion, or pneumothorax. Partially imaged right breast prosthesis. Left breast prosthesis is not identified. Correlate clinically. LIVER: Unremarkable. GALLBLADDER AND BILE DUCTS: Unremarkable. PANCREAS: Unremarkable. SPLEEN: Unremarkable. ADRENALS: Unremarkable. KIDNEYS AND URETERS: Malrotated right kidney. The kidneys enhance symmetrically. No hydronephrosis or obstructing calculus identified. VASCULATURE: No aortic aneurysm. No atherosclerotic calcification or mural plaque present. BOWEL: Stomach is nondistended. Lack of oral contrast limits evaluation for bowel pathology. Bowel loops appear within normal limits of caliber without evidence of obstruction. APPENDIX: The appendix is not identified. PERITONEUM: No significant free fluid. No definite free air. LYMPH NODES: No bulky adenopathy identified. BLADDER: Unremarkable. REPRODUCTIVE: The uterus is present. BONES: No acute osseous abnormality is detected. OTHER FINDINGS: None. IMPRESSION: The appendix is not identified. No secondary signs of acute appendicitis appreciated. Lack of oral contrast limits evaluation. If high clinical index of suspicion, suggest repeat study following administration oral contrast.
[2018-11-23 17:54] VITALS: BP 112/69; PULSE 89; TEMP 98.5
== END 2018-11-23 17:54 | disposition home or self-care (01) ==
LOC: C.ER 11:33
DX: D25.1 Intramural leiomyoma of uterus (principal); N76.0 Acute vaginitis; B96.89 Other specified bacterial agents as the cause of diseases classified elsewhere
CPT/HCPCS: 74177; 76830; 76856; 80053; 81001; 83690; 84703; 85025; 87086; 87491; 87591; 96361; 96374; 96375; 99285; J1885; J2405; J7040; Q9967

== ENCOUNTER 2018-12-31 18:48 | Emergency (ER) | payer BC ==
[2018-12-31 19:05] VITALS: BMI 24.5
[2018-12-31 19:09] VITALS: TEMP 98.7; O2SAT 98
--- NOTE | 2018-12-31 20:02 | C.PDOC ---
History Of Present Illness 33 year old female presents to the emergency department status-post second hemorrhoidectomy 3 days ago. Patient states that she has not had a bowel movement since. Patient states that it hurts to push and she therefore refuses to. She was reports taking milk of magnesia 3 times prior. Patient is requesting and anal suppository which she feels will help her. Time Seen by Provider: 12/31/18 19:53 Chief Complaint (Nursing): Abdominal Pain History Per: Patient History/Exam Limitations: no limitations Onset/Duration Of Symptoms: Days (3) Current Symptoms Are (Timing): Still Present Associated Symptoms: denies: Fever, Chills, Nausea, Vomiting Last Bowel Movement: Days Ago (3) Past Medical History Reviewed: Historical Data, Nursing Documentation, Vital Signs Vital Signs: Last Vital Signs Temp 98.7 F 12/31/18 19:04 Pulse 89 12/31/18 19:04 Resp 18 12/31/18 19:04 BP 127/76 12/31/18 19:04 Pulse Ox 98 12/31/18 19:04 - Medical History PMH: Asthma (denies) Denies: Chronic Kidney Disease Surgical History: Tonsillectomy - [facility] Procedures COLONOSCOPY (11/07/14) ESOPHAGOGASTRODUODENOSCOPY [EGD] W/CLOSED BIOPSY (11/21/14) Family History: States: No Known Family Hx - Social History Hx Tobacco Use: No Hx Alcohol Use: No Hx Substance Use: No - Immunization History Hx Tetanus Toxoid Vaccination: Yes Hx Influenza Vaccination: Yes Hx Pneumococcal Vaccination: Yes Review Of Systems Except As Marked, All Systems Reviewed And Found Negative. Constitutional: Negative for: Fever, Chills Cardiovascular: Negative for: Chest Pain Gastrointestinal: Positive for: Rectal Pain. Negative for: Nausea, Vomiting, Abdominal Pain, Diarrhea Physical Exam - Physical Exam Appears: Non-toxic, No Acute Distress, Other (anxious) Skin: Normal Color, Warm, Dry Head: Atraumatic, Normacephalic Eye(s): bilateral: Normal Inspection, PERRL, EOMI Nose: Normal Oral Mucosa: Moist Neck: Normal, Supple Chest: Symmetrical, No Tenderness Cardiovascular: Rhythm Regular, No Murmur Respiratory: Normal Breath Sounds, No Rales, No Rhonchi, No Wheezing Gastrointestinal/Abdominal: Soft, No Tenderness, No Guarding, No Rebound Extremity: Normal ROM Neurological/Psych: Oriented x3, Normal Speech, Normal Cognition ED Course And Treatment O2 Sat by Pulse Oximetry: 98 (RA) Pulse Ox Interpretation: Normal Medical Decision Making Medical Decision Making: painful anal area s/p hemorroidectomy defers eval and wants anal suppository placed by female nurse pending f/u with surgeon who performed hemorroidectomy Plan: Glycerin Adult Suppository Disposition Doctor Will See Patient In The: Office Counseled Patient/Family Regarding: Studies Performed, Diagnosis - Disposition Referrals: [facility] [Outside] [employer] [facility] [Outside] [facility] [Outside] [facility] [facility] [Outside] Disposition: HOME/ ROUTINE Disposition Time: 20:02 Condition: GOOD Additional Instructions: Glycerine Suppository placed in ED continue anal suppositories as needed diet of fresh fruits and vegetables to continue a very loose stool Drink plenty of water. follow-up with Surgeon as pending. Instructions: Constipation in Adults, Hemorrhoidectomy, Hemorrhoid Banding Forms: [employer] (Armenian) - Clinical Impression Clinical Impression: Anal pain, Constipation - Scribe Statement The provider has reviewed the documentation as recorded by the Scribe (Jermaine Elder) Provider Attestation: All medical record entries made by the Scribe were at my direction and personally dictated by me. I have reviewed the chart and agree that the record accurately reflects my personal performance of the history, physical exam, medical decision making, and the department course for this patient. I have also personally directed, reviewed, and agree with the discharge instructions and disposition.
[2018-12-31 20:43] VITALS: BP 120/70; PULSE 70; RESP 14
== END 2018-12-31 20:43 | disposition home or self-care (01) ==
LOC: C.ER 18:48
DX: K59.00 Constipation, unspecified (principal); K62.89 Other specified diseases of anus and rectum

== ENCOUNTER 2019-01-01 01:44 | Emergency (ER) | payer BC ==
[2019-01-01 01:45] VITALS: BMI 24.5
--- NOTE | 2019-01-01 03:32 | C.PDOC ---
History Of Present Illness 33 year old female s/p hemorrhoidectomy seen earlier for constipation, given glycerin suppository but still unable to have bowel movement and reports some sharp pain to the rectal area and lower abdominal area. Denies vomiting, diarrhea, vaginal bleeding, or rectal bleeding. Patient requesting meds to help move bowels. Time Seen by Provider: 01/01/19 02:11 Chief Complaint (Nursing): Abdominal Pain History Per: Patient History/Exam Limitations: no limitations Onset/Duration Of Symptoms: Hrs Current Symptoms Are (Timing): Still Present Location Of Pain/Discomfort: Other (Lower, Rectum) Quality Of Discomfort: Unable To Describe Associated Symptoms: Constipation. denies: Vomiting, Diarrhea Exacerbating Factors: None Alleviating Factors: None Recent travel outside of the [place]: No Abnormal Vaginal Bleeding: No Past Medical History Reviewed: Historical Data, Nursing Documentation, Vital Signs Vital Signs: Last Vital Signs Temp 97.8 F 01/01/19 01:51 Pulse 97 H 01/01/19 01:51 Resp 19 01/01/19 01:51 BP 117/75 01/01/19 01:51 Pulse Ox 97 01/01/19 01:51 - Medical History PMH: Asthma (denies) Denies: Chronic Kidney Disease Surgical History: Tonsillectomy - [facility] Procedures COLONOSCOPY (11/07/14) ESOPHAGOGASTRODUODENOSCOPY [EGD] W/CLOSED BIOPSY (11/21/14) Family History: States: Unknown Family Hx - Social History Hx Tobacco Use: No Hx Alcohol Use: No Hx Substance Use: No - Immunization History Hx Tetanus Toxoid Vaccination: Yes Hx Influenza Vaccination: Yes Hx Pneumococcal Vaccination: Yes Review Of Systems Constitutional: Negative for: Fever, Chills Gastrointestinal: Positive for: Abdominal Pain, Constipation, Rectal Pain. Negative for: Vomiting, Diarrhea, Other (Rectal bleeding) Genitourinary: Negative for: Vaginal Bleeding Musculoskeletal: Negative for: Back Pain Physical Exam - Physical Exam Appears: Non-toxic Skin: Normal Color, Warm, Dry Head: Atraumatic, Normacephalic Eye(s): bilateral: Normal Inspection Gastrointestinal/Abdominal: Soft, No Tenderness Rectal: Other (Refused) Neurological/Psych: Oriented x3, Normal Speech Gait: Steady ED Course And Treatment O2 Sat by Pulse Oximetry: 97 - Other Rad Abdomen x-ray X-Ray: Interpreted by Me, Viewed By Me Interpretation: Moderate stool, increased gas pattern but no obstruction. Progress Note: Abdomen x-ray showed moderate stool. Patient given topical lidocaine to apply to anal area and fleet enema with successful bowel movement. Patient reports improvement, advised high fiber diet and discharged to follow up with PMD. Disposition Counseled Patient/Family Regarding: Diagnosis - Disposition Referrals: Gen surgery, [Other] Disposition: HOME/ ROUTINE Disposition Time: 03:34 Condition: STABLE Additional Instructions: Please follow up with PMD/ Surgeon Increase fiber in diet May take metamucil PO Return to ER if worse Instructions: High Fiber Diet, Constipation, Adult (DC) Forms: [employer] (Upper Sorbian) - Clinical Impression Clinical Impression: Constipation, S/P hemorrhoidectomy - PA / CASHIER PAYMENTS RECEIVED / Resident Statement MD/DO has reviewed & agrees with the documentation as recorded. - Scribe Statement The provider has reviewed the documentation as recorded by the Scribe Arthur Bhakta All medical record entries made by the Scribe were at my direction and personally dictated by me. I have reviewed the chart and agree that the record accurately reflects my personal performance of the history, physical exam, medical decision making, and the department course for this patient. I have also personally directed, reviewed, and agree with the discharge instructions and disposition.
[2019-01-01 03:40] VITALS: BP 122/71; PULSE 81; RESP 18; TEMP 98.1
[2019-01-01 04:46] VITALS: O2SAT 97
--- NOTE | 2019-01-01 07:58 | RAD ---
Date of service: 01/01/2019 HISTORY: constipation, abd pain COMPARISON: None available. FINDINGS: BOWEL: Mild right colonic inferior stool retention.. No obstruction. BONES: Slight leftward convexity of the lumbar spine. No gross urolithiasis apparent OTHER FINDINGS: None. IMPRESSION: No mechanical obstruction.Other findings as above.
== END 2019-01-01 03:45 | disposition home or self-care (01) ==
LOC: C.ER 01:44
DX: K59.00 Constipation, unspecified (principal); Z98.890 Other specified postprocedural states

== ENCOUNTER 2019-01-05 10:53 | Emergency (ER) | payer BC ==
[2019-01-05 10:53] VITALS: BMI 24.5
[2019-01-05 11:06] VITALS: BP 108/70; PULSE 72; RESP 18; TEMP 98.5; O2SAT 100
[2019-01-05] MEDS ORDERED: Lidocaine 2% Jelly (Uro-Jet) TOP ONE (11:48)
[2019-01-05] MEDS ORDERED: Lidocaine 2% Jelly (Uro-Jet) ONE (11:49)
--- NOTE | 2019-01-05 12:03 | C.PDOC ---
History Of Present Illness 33 year old female with a PMHx of hemorrhoidectomy on 12/28/[address] Betancourt presents for evaluation of constipation x3 days. She notes she was evaluated 4 days ago at [facility] for the same symptoms with relief after enema. She has been drinking prune juice and taking a stool softener without relief. Notes she had bright red spotting yesterday after pushing without BM which has resolved. enies fever, chills, abdominal pain, vomiting, back pain, vaginal discharge, and any other associated symptoms. Time Seen by Provider: 01/05/19 11:24 Chief Complaint (Nursing): GI Problem History Per: Patient History/Exam Limitations: no limitations Onset/Duration Of Symptoms: Days (x3) Current Symptoms Are (Timing): Still Present Recent travel outside of the [place]: No Past Medical History Reviewed: Historical Data, Nursing Documentation, Vital Signs Vital Signs: Last Vital Signs Temp 98.5 F 01/05/19 11:00 Pulse 72 01/05/19 11:00 Resp 18 01/05/19 11:00 BP 108/70 01/05/19 11:00 Pulse Ox 100 01/05/19 11:00 - Medical History PMH: Asthma (denies) Denies: Chronic Kidney Disease Surgical History: Tonsillectomy - [facility] Procedures COLONOSCOPY (11/07/14) ESOPHAGOGASTRODUODENOSCOPY [EGD] W/CLOSED BIOPSY (11/21/14) Family History: States: Unknown Family Hx - Social History Hx Tobacco Use: No Hx Alcohol Use: No Hx Substance Use: No - Immunization History Hx Tetanus Toxoid Vaccination: No Hx Influenza Vaccination: Yes Hx Pneumococcal Vaccination: No Review Of Systems Constitutional: Negative for: Fever, Chills Gastrointestinal: Positive for: Constipation, Other ((+) pain with bowel movement. (+) spotting. ). Negative for: Abdominal Pain Physical Exam - Physical Exam Appears: Non-toxic, No Acute Distress Skin: Warm, Dry Head: Atraumatic, Normacephalic Eye(s): bilateral: Normal Inspection, EOMI Nose: Normal Oral Mucosa: Moist Neck: Normal ROM, Supple Chest: Symmetrical, No Deformity Cardiovascular: Rhythm Regular Respiratory: Normal Breath Sounds, No Rales, No Rhonchi, No Wheezing Gastrointestinal/Abdominal: Normal Exam, Soft, No Tenderness Rectal: Normal Exam (normal external exam, no bleeding, no thrombosed hemo rrhoids) Extremity: Normal ROM Extremity: Bilateral: Atraumatic, Normal Color And Temperature, Normal ROM Neurological/Psych: Oriented x3, Normal Speech, Normal Cognition ED Course And Treatment O2 Sat by Pulse Oximetry: 100 (RA) Pulse Ox Interpretation: Normal Progress Note: Patient given topical lidocaine and fleet enema with successful bowel movement. Patient reports improvement, advised high fiber diet and discharged to follow up with surgeon. Medical Decision Making Medical Decision Making: Initial plan: -Fleet Enema -Lidocaine 2% Gel Progress/Update: Pt offered an obstructive series but refused. Pt stable for discharge home and advised to follow-up with GI with 1-2 days. Disposition - Disposition Disposition: HOME/ ROUTINE Disposition Time: 12:06 Condition: STABLE Additional Instructions: Increase fiber and water in your diet. You can use metamucil. Follow up with your surgeon or clinic in 2-5 days for further evaluation. Take medications as prescribed. Return to the emergency department at any time if symptoms persist or worsen. Instructions: Constipation, Adult (DC) Forms: [employer] (Lithuanian) - Clinical Impression Clinical Impression: Constipation - PA / CLINICAL STUDIES SPECIALIST / Resident Statement MD/DO has reviewed & agrees with the documentation as recorded. - Scribe Statement The provider has reviewed the documentation as recorded by the Scribe (Chacha Griffiths) All medical record entries made by the Scribe were at my direction and personally dictated by me. I have reviewed the chart and agree that the record accurately reflects my personal performance of the history, physical exam, medical decision making, and the department course for this patient. I have also personally directed, reviewed, and agree with the discharge instructions and disposition.
== END 2019-01-05 12:41 | disposition home or self-care (01) ==
LOC: C.ER 10:53
DX: K59.00 Constipation, unspecified (principal)

== ENCOUNTER 2019-02-25 10:51 | Emergency (ER) | payer BC ==
[2019-02-25 10:52] VITALS: BMI 24.5
[2019-02-25 11:02] VITALS: RESP 18; O2SAT 95
--- NOTE | 2019-02-25 12:45 | C.PDOC ---
History Of Present Illness 33 year old female presents to ED with complaint of constipation for the past 4 days. Patient has a PMHx of IBS. She suffers from chronic constipation. Patient states that she tried Miralax, Colace, and prunes with no relief. She states that she had an enema done in the past, which helped. Patient denies nausea, vomiting, or rectal bleeding. Time Seen by Provider: 02/25/19 11:17 Chief Complaint (Nursing): GI Problem History Per: Patient History/Exam Limitations: no limitations Onset/Duration Of Symptoms: Days (4) Current Symptoms Are (Timing): Still Present Radiation Of Pain To:: None Associated Symptoms: Constipation. denies: Fever, Chills, Nausea, Vomiting, Diarrhea, Urinary Symptoms Exacerbating Factors: None Alleviating Factors: None Past Medical History Reviewed: Historical Data, Nursing Documentation, Vital Signs Vital Signs: Last Vital Signs Temp 99.1 F 02/25/19 10:57 Pulse 85 02/25/19 10:57 Resp 18 02/25/19 10:57 BP 119/75 02/25/19 10:57 Pulse Ox 95 02/25/19 10:57 Primary Care Provider: Non [facility] Provider, - Medical History PMH: Asthma (denies) Denies: Chronic Kidney Disease Other PMH: IBS Surgical History: Tonsillectomy - [facility] Procedures COLONOSCOPY (11/07/14) ESOPHAGOGASTRODUODENOSCOPY [EGD] W/CLOSED BIOPSY (11/21/14) Family History: States: Unknown Family Hx - Social History Hx Tobacco Use: No Hx Alcohol Use: Yes Hx Substance Use: No - Immunization History Hx Tetanus Toxoid Vaccination: No Hx Influenza Vaccination: Yes Hx Pneumococcal Vaccination: No Review Of Systems Constitutional: Negative for: Fever, Chills, Weakness Gastrointestinal: Positive for: Constipation. Negative for: Nausea, Vomiting, Abdominal Pain, Diarrhea, Melena, Hematochezia, Rectal Pain Genitourinary: Negative for: Dysuria, Frequency, Hematuria Physical Exam - Physical Exam Appears: Non-toxic, Other (uncomfortable) Skin: Normal Color, Warm, Dry Head: Atraumatic, Normacephalic Neck: Normal ROM, Supple Chest: Symmetrical, No Deformity Cardiovascular: Rhythm Regular, No Murmur Respiratory: No Accessory Muscle Use, No Rales, No Rhonchi, No Wheezing Gastrointestinal/Abdominal: Soft, No Tenderness, No Distention, No Guarding, No Rebound Extremity: Capillary Refill (<2 seconds) Extremity: Bilateral: Atraumatic, Normal Color And Temperature, Normal ROM Pulses: Left Radial: Normal, Right Radial: Normal Neurological/Psych: Oriented x3, Normal Speech, Normal Cognition ED Course And Treatment O2 Sat by Pulse Oximetry: 95 (in RA) Pulse Ox Interpretation: Normal Progress Note: Patient given Fleet enema. Disposition Counseled Patient/Family Regarding: Studies Performed, Diagnosis, Need For Followup, Rx Given - Disposition Referrals: [facility] [Outside] Disposition: HOME/ ROUTINE Disposition Time: 13:00 Condition: STABLE Additional Instructions: FOLLOW UP WITH YOUR DOCTOR IN 1-2 DAYS INCREASE WATER AND FIBER IN YOUR DIET RETURN TO ER IF SYMPTOMS WORSEN Prescriptions: Docusate [Colace] 100 mg PO DAILY #30 cap Magnesium Citrate [Citrate of Mag] 300 ml PO ONCE PRN #1 bottle PRN Reason: Constipation Instructions: Constipation, Adult (DC), High Fiber Diet Forms: [employer] (Monegasque) Print Language: CZECH - Clinical Impression Clinical Impression: Constipation - Scribe Statement The provider has reviewed the documentation as recorded by the Scribe (Yola Soto) All medical record entries made by the Scribe were at my direction and personally dictated by me. I have reviewed the chart and agree that the record accurately reflects my personal performance of the history, physical exam, medical decision making, and the department course for this patient. I have also personally directed, reviewed, and agree with the discharge instructions and disposition.
[2019-02-25 13:07] VITALS: BP 122/79; PULSE 100; TEMP 98.1
== END 2019-02-25 13:07 | disposition home or self-care (01) ==
LOC: C.ER 10:51
DX: K59.00 Constipation, unspecified (principal)